=== PATIENT | female | born 1995 | race Caucasian/White ===

== ENCOUNTER 2017-12-04 08:10 | Outpatient (CLI) | payer OTHER ==
--- NOTE | 2017-12-04 09:44 | ULT ---
ULTRASOUND ABDOMEN COMPLETE: HISTORY: A 22-year-old female with generalized abdominal pain. FINDINGS: The gallbladder has normal wall thickness and has no evidence of gallstones or sludge. The hepatic e chogenicity is normal. The kidneys have normal echogenicity, and there is no hydronephrosis. There is no splenomegaly. There is no abdominal aortic aneurysm. No free fluid is identified. The inferi or vena cava is visualized. The pancreas is visualized, although ultrasound is relatively insensitiv e for pancreatic pathology compared to CT and MRI. There is no biliary dilation. The common duct ca liber is 4 mm. IMPRESSION: Normal. jn [] POS: [facility]
== END 2017-12-04 08:11 | disposition home or self-care (01) ==
LOC: ULT 08:10
PROVIDERS: ATTEND Internal Medicine Gastroenterology
DX: F43.9 Reaction to severe stress, unspecified (principal); F90.9 Attention-deficit hyperactivity disorder, unspecified type; R10.13 Epigastric pain; Z87.19 Personal history of other diseases of the digestive system; Z83.79 Family history of other diseases of the digestive system
CPT/HCPCS: 76700